=== PATIENT | female | born 1950 | race Caucasian/White ===

== ENCOUNTER 2018-07-07 07:47 | Day surgery (SDC) | payer OTHER ==
[~2018-07-07 07:47] MED LIST: ACETAMINOPHEN 1,000 MG/100 ML BTL IV ONE; FAMOTIDINE 20MG TABLET PO ONE; METOCLOPRAMIDE 10 MG TABLET PO ONE; SCOPOLAMINE 1 PATCH TDSY TD ONE
[2018-07-07] MEDS ORDERED: FENTANYL PF 100MCG/2ML VIAL IV ONE (07:48)
[2018-07-07] MEDS ORDERED: PROPOFOL 10 MG/ML VIAL IV ONE (07:48)
[2018-07-07] MEDS ORDERED: LIDOCAINE 2% MDV (20MG/ML) 20ML VIAL IV ONE (07:48)
[2018-07-07] MEDS ORDERED: MIDAZOLAM HCL 2MG/2ML VIAL IV ONE (07:48)
[2018-07-07] MEDS ORDERED: ONDANSETRON HCL IV 4 MG/2 ML VIAL IVP ONE (07:48)
[2018-07-07] MEDS ORDERED: DEXAMETHASONE 4 MG/ML 1ML VIAL IVP ONE (07:48)
[2018-07-07] MEDS ORDERED: DESFLURANE 240 ML BTL INH ONE (07:48)
--- NOTE | 2018-07-08 15:10 | Operative Note ---
DATE OF SURGERY: 07/07/2018 Surgeon: Antonio Hoffmann DO PREOPERATIVE DIAGNOSIS: Carpal tunnel syndrome of the right wrist. POSTOPERATIVE DIAGNOSIS: Carpal tunnel syndrome of the right wrist. OPERATION: Decompression right median nerve at the wrist using 3.5 loop magnification. DESCRIPTION OF PROCEDURE: This 68-year-old female was taken to the operating room and placed in the supine position on the operating room table. General anesthesia was induced. The right upper extremity was elevated. It was prepped with Hibiclens and draped in the usual sterile fashion. It was exsanguinated and the tourniquet inflated to 250 mmHg. A palmar incision was utilized following the hypothenar crease from the level of the base of the web space of the thumb to the flexor crease of the wrist. Dissection was carried down through the skin and subcutaneous tissue. Palmar fascia divided in line with the skin incision. The flexor retinaculum was identified, punctured, and split to its proximal margin. Then with the contents of the carpal tunnel under direct vision, the transverse carpal ligament was transected along its ulnar border. The radial flap was raised to expose the entire median nerve under the transverse carpal ligament. The recurrent motor branch of the median nerve was identified and found to be normal. The wound was irrigated with lactated Ringer's solution and the tourniquet released. Hemostasis obtained with the electrocautery and the wound closed with interrupted 6-0 nylon suture. Sterile dressings with a plaster splint immobilization was applied with the wrist in slight dorsiflexion and the thumb in an adducted position. GROSS PATHOLOGY: This patient demonstrated mild hyperemia and mild hourglass deformity of the median nerve. No other pathology identified. [facility]
== END 2018-07-07 10:40 | disposition home or self-care (01) ==
LOC: SUR 07:47
PROVIDERS: ATTEND Orthopaedic Surgery
DX: G56.01 Carpal tunnel syndrome, right upper limb (principal); K21.9 Gastro-esophageal reflux disease without esophagitis; E66.9 Obesity, unspecified; Z68.43 Body mass index [BMI] 50.0-59.9, adult
CPT/HCPCS: 64721; 01810; J2405; J3010

== ENCOUNTER 2019-01-21 07:18 | Day surgery (SDC) | payer OTHER ==
[~2019-01-21 07:18] MED LIST changes: -ACETAMINOPHEN 1,000 MG/100 ML BTL IV ONE; +ACETAMINOPHEN 1,000 MG/100 ML BTL IVPB ONE
[2019-01-21] MEDS ORDERED: KETOROLAC 30 MG/ML VIAL IVP ONE (07:19)
[2019-01-21] MEDS ORDERED: SEVOFLURANE 250 ML INH ONE (07:19)
[2019-01-21] MEDS ORDERED: MIDAZOLAM HCL 2MG/2ML VIAL IV ONE (07:19)
[2019-01-21] MEDS ORDERED: ONDANSETRON HCL IV 4 MG/2 ML VIAL IVP ONE (07:19)
[2019-01-21] MEDS ORDERED: PROPOFOL 10 MG/ML VIAL IV ONE (07:19)
[2019-01-21] MEDS ORDERED: LIDOCAINE 2% MDV (20MG/ML) 20ML VIAL IV ONE (07:19)
[2019-01-21] MEDS ORDERED: FENTANYL PF 100MCG/2ML VIAL IV ONE (07:19)
[2019-01-21] MEDS ORDERED: RINGERS SOLUTION,LACTATED 1,000 ML IV ONE ×2 (07:45→09:48)
[2019-01-21] MEDS ORDERED: ACETAMINOPHEN W/ CODEINE 300MG/30MG TABLET PO ONE (10:17)
--- NOTE | 2019-01-22 09:40 | Operative Note ---
DATE OF SURGERY: 01/21/2019 SURGEON: Antonio Hoffmann DO PREOPERATIVE DIAGNOSIS: Carpal tunnel syndrome of the left wrist. POSTOPERATIVE DIAGNOSIS: Carpal tunnel syndrome of the left wrist. OPERATION: Decompression left median nerve of the wrist using 3.5 loop magnification. DESCRIPTION OF PROCEDURE: This 68-year-old female was taken to the operating room and placed in the supine position on the operating room table. General anesthesia was induced. The left upper extremity was elevated, prepped with Hibiclens, and draped in the usual sterile fashion. It was exsanguinated and the tourniquet inflated to 250 mmHg. A palmar incision was utilized following the hypothenar crease from the level of the base of the webspace of the thumb to the flexor crease of the wrist. Dissection was carried down through the skin and subcutaneous tissue. The palmar fascia was divided in line with the skin incision. The flexor retinaculum was identified. It was punctured and split to its proximal margin. Then, with the contents of the carpal tunnel under direct vision, the transverse carpal ligament was transected along its ulnar border. The radial flap was raised to expose the entire median nerve under the transverse carpal ligament. The recurrent motor branch of the median nerve was identified and found to be normal. The patient demonstrated 3 or 4 small blood vessels on the ventral surface of the nerve, which were not disrupted. The anatomy was otherwise unremarkable. The wound was irrigated with lactated Ringer's solution and the tourniquet was released and hemostasis obtained with the electrocautery. The wound closed with interrupted 6-0 nylon suture. Sterile dressings were applied with plaster splint immobilization with the thumb in slight adduction and wrist in slight dorsiflexion. The patient was then taken to the recovery room in satisfactory condition. [facility]
== END 2019-01-21 10:25 | disposition home or self-care (01) ==
LOC: SUR 07:18
PROVIDERS: ATTEND Orthopaedic Surgery
DX: G56.02 Carpal tunnel syndrome, left upper limb (principal); R06.02 Shortness of breath; Z68.43 Body mass index [BMI] 50.0-59.9, adult
CPT/HCPCS: J1885; J2405; J7120